=== PATIENT | female | born 1960 ===

== ENCOUNTER 2018-04-08 11:30 | Emergency (ER) | payer MEDICARE, OTHER ==
[2018-04-08 11:34] VITALS: BMI 34.2
[2018-04-08 11:39] VITALS: TEMP 98.9
[2018-04-08 12:31] LABS: BASO % 1.1 % (0.0-2.0); EOS # 0.1 K/uL (0.0-0.7); EOS % 1.8 % (0.0-4.0); HEMOGLOBIN 13.4 g/dL (11.0-16.0); LYMPH # 1.7 K/uL (1.0-4.3); LYMPH % 36.5 % (20.0-40.0); MEAN CELL VOLUME 87.6 fL (81.0-99.0); MEAN CORPUSCULAR HEMOGLOBIN 29.8 pg (27.0-31.0); MEAN PLATELET VOLUME 8.8 fL (7.2-11.7); MONO # 0.3 K/uL (0.0-0.8); MONO % 7.2 % (0.0-10.0); NEUT # 2.5 K/uL (1.8-7.0); NEUT % 53.4 % (50.0-75.0); RBC 4.5 Mil/uL (3.80-5.20); RED CELL DISTRIBUTION WIDTH 13.4 % (11.5-14.5); WHITE BLOOD COUNT 4.6 K/uL (4.8-10.8)
[2018-04-08 12:35] LABS: SQUAMOUS EPITHIAL 3 /hpf (0-5); URINE BILIRUBIN NEGATIVE (NEGATIVE); URINE BLOOD NEGATIVE (NEGATIVE); URINE CLARITY Clear (Clear); URINE COLOR Yellow (YELLOW); URINE GLUCOSE (UA) NORMAL (Normal); URINE LEUKOCYTE ESTERASE TRACE Leu/uL (Negative); URINE PROTEIN NEGATIVE (NEGATIVE); URINE UROBILINOGEN NORMAL mg/dL (0.2-1.0)
[2018-04-08 12:54] LABS: ALB/GLOB RATIO 1.3 (1.0-2.1); ALBUMIN 4.5 g/dL (3.5-5.0); ALT/SGPT 22 U/L (9-52); AST/SGOT 24 U/L (14-36); BLOOD UREA NITROGEN 16 mg/dL (7-17); CALCIUM 9.4 mg/dl (8.6-10.4); GFR NON-AFRICAN AMERICAN > 60; LIPASE 77 U/L (23-300)
--- NOTE | 2018-04-08 13:25 | C.PDOC ---
History Of Present Illness 57 y/o female presents to the ED complaining of periumilical colic for the past two months. No fever or chills. Denies any associated vomiting, diarrhea, constipation, or change in weight. Time Seen by Provider: 04/08/18 12:04 Chief Complaint (Nursing): Abdominal Pain History Per: Patient History/Exam Limitations: no limitations Onset/Duration Of Symptoms: Days Current Symptoms Are (Timing): Still Present Location Of Pain/Discomfort: Periumbilical Quality Of Discomfort: "Pain" Past Medical History Reviewed: Historical Data, Nursing Documentation, Vital Signs Vital Signs: Last Vital Signs Temp 98.9 F 04/08/18 11:34 Pulse 77 04/08/18 11:34 Resp 17 04/08/18 11:34 BP 147/77 04/08/18 11:34 Pulse Ox 99 04/08/18 11:34 - Medical History PMH: Anxiety, Arthritis, Asthma, Bronchitis (SEPTEMBER 2014), Gastritis, HTN, Pneumonia (admitted september 2014 ), Rheumatoid Arthritis - [facility] Procedures LARYGNOSCOPY AND OTH TRACHEOSCOPY (10/06/14) PERCUTAN NEEDLE BX OF THYROID GLAND (11/09/14) VACCINATION NEC (10/06/14) Family History: States: Unknown Family Hx - Social History Hx Tobacco Use: No Hx Alcohol Use: No Hx Substance Use: No - Immunization History Hx Tetanus Toxoid Vaccination: No Hx Influenza Vaccination: Yes (03/2018) Hx Pneumococcal Vaccination: No Review Of Systems Except As Marked, All Systems Reviewed And Found Negative. Constitutional: Negative for: Fever, Chills Gastrointestinal: Positive for: Abdominal Pain. Negative for: Vomiting, Diarrhea, Constipation, Other (weight loss/gain) Genitourinary: Negative for: Dysuria, Frequency, Hematuria Musculoskeletal: Negative for: Back Pain Physical Exam - Physical Exam Appears: Non-toxic, No Acute Distress, Other (Obese female) Skin: Normal Color, Warm, Dry Head: Atraumatic, Normacephalic Eye(s): bilateral: Normal Inspection, PERRL, EOMI Oral Mucosa: Moist Neck: Normal ROM, Supple Chest: Symmetrical Cardiovascular: Rhythm Regular, No Murmur Respiratory: Normal Breath Sounds, No Accessory Muscle Use Gastrointestinal/Abdominal: Soft, No Tenderness, No Distention, No Guarding, No Rebound Back: Normal Inspection, No CVA Tenderness Extremity: Bilateral: Atraumatic, Normal Color And Temperature, Normal ROM Neurological/Psych: Oriented x3, Normal Speech ED Course And Treatment - Laboratory Results Result Diagrams: 04/08/18 12:27 04/08/18 12:27 Lab Interpretation: Normal (UA neg.) O2 Sat by Pulse Oximetry: 99 (RA) Pulse Ox Interpretation: Normal - Radiology CXR: Interpreted by Me CXR Interpretation: Yes: No Acute Disease - Other Rad abd x 2 X-Ray: Interpreted by Me (+ increased stool/gas) Reevaluation Time: 13:26 Reassessment Condition: Unchanged Medical Decision Making Medical Decision Making: Plan: * Labs * x-ray obstructive series Progress: normal bowel colic normal labs/UA Patient will be discharged home. Disposition Doctor Will See Patient In The: Office Counseled Patient/Family Regarding: Studies Performed, Diagnosis - Disposition Referrals: Gwyn Marquis MD [Staff Provider] - Disposition: HOME/ ROUTINE Disposition Time: 13:26 Condition: GOOD Additional Instructions: prueba un purgante occasionalmente cambios de dieta y ejercisio baja de peso abdominal Sigue con Dr. Marquis nate necessario. Instructions: Constipation in Adults, Gas and Bloating Forms: [facility] (Cuban) Print Language: BULGARIAN - Clinical Impression Clinical Impression: Abdominal pain, colicky - Scribe Statement The provider has reviewed the documentation as recorded by the Scribe (Seda Mendez) Provider Attestation: All medical record entries made by the Scribe were at my direction and personally dictated by me. I have reviewed the chart and agree that the record accurately reflects my personal performance of the history, physical exam, medical decision making, and the department course for this patient. I have also personally directed, reviewed, and agree with the discharge instructions and disposition.
[2018-04-08 13:39] VITALS: BP 142/73; PULSE 68; RESP 18
--- NOTE | 2018-04-08 16:30 | RAD ---
Date of service: 04/08/2018 PROCEDURE: Radiographs of the chest and abdomen (obstructive series) HISTORY: abd pain COMPARISON: No prior. TECHNIQUE: AP radiograph of the chest, with upright and supine radiographs of the abdomen. FINDINGS: CHEST: Lungs: Clear. Cardiovascular: Normal size heart. No pulmonary vascular congestion. Pleura: No pleural fluid. No pneumothorax. Other findings: None. ABDOMEN AND PELVIS: Bowel: Moderate stool retention. No evidence of mechanical obstruction. Free air: None. Bones: Inferior L4-5 degenerative changes. Other findings: A 1.2 cm rimmed calcification projects over the left upper abdominal quadrant at the L1-2 level. Origin unknown calcified lymph node, partially calcified vessel seen on end, and/or left renal calcification or just some considerations. IMPRESSION: No pulmonary infiltrate.. Moderate stool retention. No evidence of mechanical bowel obstruction. 1.2 cm rimmed calcification-left upper abdominal quadrant-specific origin unclear-considerations as above.
[2018-04-08 16:39] VITALS: O2SAT 99
== END 2018-04-08 13:39 | disposition home or self-care (01) ==
LOC: C.ER 11:30
DX: R10.84 Generalized abdominal pain (principal)